=== PATIENT | female | born 1980 | race Caucasian/White ===

== ENCOUNTER 2023-01-10 14:18 | Emergency (ER) | payer MEDICARE, SELFPAY ==
[2023-01-10] VITALS (46 sets, daily range): BP systolic 104–153; BP diastolic 49–75; PULSE 88–133; RESP 16–37; TEMP 37.2–37.3; O2SAT 91–100
--- NOTE | ~2023-01-10 | CT_ITS ---
EXAMINATION: CT pelvis w con DATE: 01/10/2023 15:53 INDICATION: Large abscess of the vagina and proximal TECHNIQUE: High resolution computed tomography (CT) of the pelvis was performed with 100 mL Omnipaque -350 intravenous contrast. Additional sagittal and coronal reconstructions were performed. Automated exposure control and iterative reconstruction technique were employed. The dose-length product was 49 3.87 mGy-cm. COMPARISON: None FINDINGS: There are few diverticula along the sigmoid and distal descending colon without adjacent from trace s tranding to suggest diverticulitis. The appendix and visualized portion of the small bowels are unrem arkable. The visualized lower poles of the kidneys are normal. A millimeter hypoenhancing fibroid at the right posterior uterine fundus. Bladder is normal. No intraperitoneal abscess or free fluid. Ther e is soft tissue swelling with prominent subcutaneous edema the medial side of the left buttock exten ding across the left side of the perineum anterior to the left side of the mons pubis. This surrounds a 4.5 x 2.0 x 1.4 cm lenticular region of relative hypoenhancement at the left side of the introitus which is without a clearly defined peripheral enhancing wall to suggest an organized abscess but non etheless concerning for phlegmonous change progressing towards abscess. No evident soft tissue gas. A symmetric mildly enlarged likely reactive left inguinal lymphadenopathy. Moderate to severe lower lum bar facet osteoarthritis. Additional mild osteoarthritis at the bilateral hip and sacroiliac joints. IMPRESSION: 1. Soft tissue swelling and prominent subcutaneous edema at the left buttock and left side of the per ineum and mons pubis consistent with cellulitis. This surrounds a 4.5 x 2.0 x 1.4 cm lenticular regio n in the subcutaneous tissues at the left side of the introitus suggestive of phlegmonous change pote ntially progressing towards abscess but still without a clearly defined organized peripherally enhanc ing wall. Reviewed, dictated and finalized at location A. IMPRESSION: 1. Soft tissue swelling and prominent subcutaneous edema at the left buttock an d left side of the perineum and mons pubis consistent with cellulitis. This adam rounds a 4.5 x 2.0 x 1.4 cm lenticular region in the subcutaneous tissues at th e left side of the introitus suggestive of phlegmonous change potentially progr essing towards abscess but still without a clearly defined organized peripheral ly enhancing wall.
--- NOTE | 2023-01-10 14:28 | ED.NAVMDI ---
HPI - Nausea/Vomiting/Diarrhea General Chief complaint: Nausea/Vomiting/Diarrhea Stated complaint: nausea Time Seen by Provider: 01/10/23 14:20 Source: patient and RN notes reviewed Mode of arrival: ambulatory Limitations: no limitations History of Present Illness MD elicited complaint: nausea and vomiting Onset (ago): week(s) (2) Description of vomiting: food contents and bilious Associated nausea: Yes Associated abdominal pain: No Exacerbating factors: eating Relieving factors: none Associated symptoms: shortness of breath, weakness and other ( abscess left buttock) Related Data Home Medications Medication Instructions Recorded Confirmed No Home Medications 01/10/23 01/10/23 Allergies Allergy/AdvReac Type Severity Reaction Status Date / Time No Known Allergies Allergy Verified 01/10/23 14:49 Review of Systems Review of Systems: All systems reviewed & are unremarkable except as noted in HPI and below PMFSH Past Medical History Medical History (Updated 01/11/23 @ 00:01 by Major Wallace) No active medical problems Surgical History Surgical History (Updated 01/10/23 @ 14:[address] MD) No pertinent past surgical history Social History Social History (Updated 01/10/23 @ 14:[address] MD) Smoking status: Never smoker Exam Const: General: no acute distress, alert and ill appearing acutely Nutritional Appearance: well nourished Orientation/consciousness: patient oriented x3 Limitations: no limitations Other: female tech in room during examination. HENMT: Head: normal to inspection Ears: external ears normal Face/Nose/Sinus: Normal external nose present Face and sinus: normal facial exam Mouth: Yes dry mucous membranes Eyes: Conjunctivae: conjunctivae normal Cornea: corneas normal Pupils: Equal, round and reactive pupils present EOM: EOMs intact bilaterally Neck: Neck: normal visual inspection Resp: Effort & Inspection: normal respiratory effort Auscultation: clear to auscultation bilaterally Cardio: Rate: regular rate Rhythm: abnormal rhythm with ectopic beats GI: GI Palp: Yes Soft to palpation and No Tenderness to palpation present (GI) Auscultation: normal bowel sounds Back/Spine/Pelvis: Cervical Spine: cervical ROM normal Thoracic/Lumbar Spine: thoraco-lumbar ROM normal Skin: General skin exam: normal color, erythema ( left buttock extends around to the inner thigh and left labia), fluctuance and induration ( left buttock) Neuro: General: patient oriented x3, moves all extremities, no focal motor deficits and CN's II-XI intact bilaterally Speech: normal speech Gait exam (Neuro): Normal gait present Extrem: General: normal to inspection and no clubbing, cyanosis or edema Psych: Mental Status: mental status grossly normal Affect: normal affect Attitude: cooperative Course Course Emergency Course: [facility] declined due to general surgery not being able to deal with the perirectal abscess. Vital Signs Vital signs: Vital Signs Temperature 37.2 C 01/10/23 14:22 Pulse Rate 88 01/10/23 14:22 Respiratory Rate 20 01/10/23 14:22 Blood Pressure 147/75 H 01/10/23 14:22 Pulse Oximetry 98 01/10/23 14:22 Oxygen Delivery Room Air 01/10/23 14:22 Temperature 37.3 C 01/10/23 21:25 Pulse Rate 125 H 01/10/23 21:25 Respiratory Rate 22 H 01/10/23 21:25 Blood Pressure 125/55 L 01/10/23 21:25 Pulse Oximetry 98 01/10/23 21:25 Oxygen Delivery Room Air 01/10/23 21:25 Transfer Transfered to: [facility] ([facility] Transportation: BLS Transfer rationale: ICU bed Accepting physician: Dr. Bautista (ICU) MDM - Nausea/Vomiting/Diarrhea Differential Diagnosis Differential diagnosis: Likely gastroenteritis, dehydration and other ( DKA, soft tissue abscess, Liang's) Lab Data Attestation: I reviewed the patient's lab results. 01/10/23 14:51 01/10/23 18:08 Labs: Lab Results 0
[2023-01-10 14:41] LABS: Glucose Point of Care 429 mg/dl (65-105)
[2023-01-10 14:58] LABS: Hematocrit 43.4 % (35.0-49.0); Hemoglobin 14.1 g/dL (12.0-15.0); Mean Corpuscular HGB Conc 32.5 g/dL (32.0-36.0); Mean Corpuscular Hemoglobin 30.1 pg (27.0-31.0); Mean Corpuscular Volume 92.7 fL (78.0-102.0); Mean Platelet Volume 11.3 fl (9.2-11.8); Platelet Count Result 234 K/mm3 (150-420); Red Blood Count 4.68 M/mm3 (4.20-5.40); Red Cell Distribution Width 12.4 % (11.6-14.4); White Blood Count 15.6 K/mm3 (4.8-10.8)
[2023-01-10] MEDS: LACTATED RINGERS 1,000 ML 999 ML IV CONT ×2 (14:59→18:52)
[2023-01-10 15:16] LABS: Lactic Acid Reflex 2.5 mmol/L (0.4-2.0)
[2023-01-10 15:20] LABS: CRP > 25.0 mg/dL (0.0-0.9)
[2023-01-10 15:22] LABS: Alanine Aminotransferase 17 U/L (14-59); Albumin Level 2.5 g/dL (3.4-5.0); Alkaline Phosphatase 82 U/L (46-116); Anion Gap 28 mmol/L (8-16); Aspartate Amino Transferase 14 U/L (15-37); Bilirubin,Total 0.6 mg/dL (0.00-1.00); Blood Urea Nitrogen 24 mg/dL (7-18); Calcium 8.6 mg/dL (8.5-10.1); Carbon Dioxide 8 mmol/L (21-32); Chloride 96 mmol/L (98-108); Estimated CRCL calculation 57 ml/min; Estimated Glomerular Filt Rate 49; Osmolality Calculated 299 mOsm/kg (285-295); Potassium 3.8 mmol/L (3.5-5.1); Sodium 132 mmol/L (136-145); Total Protein 7.8 g/dL (6.4-8.2)
[2023-01-10 15:24] LABS: Glucose 468 mg/dL (70-99)
[2023-01-10 15:28] LABS: Appearance Urine Clear (Clear); Bilirubin Urine 1+ (Negative); Blood Urine 2+ (Negative); Color Urine Light Yellow (Yellow); Glucose Urine UA 2+ (Negative); Ketones Urine 3+ (Negative); Leukocyte Esterase Ur Negative LEU/UL (Negative); Nitrate Urine Negative (Negative); Protein Urine 1+ (Negative); Specific Grav Ur >= 1.030 (1.010-1.020); Urobilinogen Urine 0.2 mg/dL (0.2-1.0); pH Urine 5.5 (5.0-8.0)
[2023-01-10 15:31] LABS: Add Urine Microscopic? YES; Pregnancy On Board Control Positive; Squamous Epithelial Cell Urine Rare /hpf (Few); Urine Pregnancy Test Negative; WBC Urine None seen /hpf (0-3)
[2023-01-10 15:32] LABS: Amorphous Sediment Urine Present; Bacteria Urine Trace /hpf
[2023-01-10 15:42] LABS: Band Neutrophils Percent 22 % (0-6); Basophils Percent Manual 0 % (0-1); Eosinophils Percent Manual 0 % (1-6); Lymphocytes Absolute Manual 0.93 K/mm3 (1.1-4.5); Lymphocytes Percent Manual 6 % (18-44); Metamyelocytes Percent 1 %; Monocytes Absolute Manual 1.09 K/mm3 (0.1-0.90); Monocytes Percent Manual 7 % (3-9); Neutrophils Absolute Manual 13.41 K/mm3 (1.7-7.2); Neutrophils Percent Manual 64 % (46-73); Total Cells Counted 100
[2023-01-10 15:43] LABS: Platelet Estimate Adequate (Adequate)
[2023-01-10 16:01] LABS: Base Excess ABG -17.6 mmol/L (0-2); HCO3 ABG 6.6 mmol/L (23-29); Oxygen Content ABG 19.1 %vol (16.0-22.0); Oxygen Saturation ABG 97.9 % (95-97); Oxyhemoglobin 97.1 % (94-100); PO2 ABG 121.7 mmHg (80-90); Total Hemoglobin 13.9 g/dL (12.0-18.0); pH ABG 7.27 (7.35-7.45)
[2023-01-10] MEDS: INSULIN REG 100 UNITS/100 ML 100 UNITS/100 ML BAG 8 UNITS IV CONT (16:02)
[2023-01-10 16:03] LABS: Device ROOM AIR; Modified Allen's Test Pass; PCO2 ABG 14.9 mmHg (35-45); Site Drawn RIGHT RADIAL
[2023-01-10] MEDS: INSULIN REG 100 UNITS/100 ML 100 UNITS/100 ML BAG IV CONT ×2 (16:07→18:52)
--- NOTE | 2023-01-10 16:16 | PC.NURSE ---
PT HAS RETURNED FROM CT, USED RR, AND HAS HAD ABG'S COLLECTED. FAMILY AT BEDSIDE. NO CHANGE IN PT RESP STATUS. PHARMACY ADJUSTED INSULIN RATE TO 8 UNITS PER HOUR. INSULIN IS INFUSING ORDERED WITHOUT DIFFICULTY, IVF AND IV MEDICATIONS ARE INFUSING WITHOUT DIFFICULTY. PT REPORTS HER BUTTOCKS HURTS, ERP IS AWARE. PT IS AWAITING LAB RESULTS AT THIS TIME. WILL CONTINUE TO MONITOR.
[2023-01-10 17:17] LABS: Glucose Point of Care 421 mg/dl (65-105)
[2023-01-10] MEDS: KETOROLAC 30 MG/ML VIAL (*BKC) IV PUSH (17:24)
[2023-01-10 17:55] LABS: Reflex Lactic Acid Yes or No Add Lactic
[2023-01-10 18:16] LABS: Glucose Point of Care 312 mg/dl (65-105)
[2023-01-10 18:30] LABS: Lactic Acid 1.8 mmol/L (0.4-2.0)
[2023-01-10 18:47] LABS: Anion Gap 24 mmol/L (8-16); Blood Urea Nitrogen 22 mg/dL (7-18); Calcium 8.3 mg/dL (8.5-10.1); Carbon Dioxide 8 mmol/L (21-32); Chloride 98 mmol/L (98-108); Estimated CRCL calculation 69 ml/min; Estimated Glomerular Filt Rate > 60; Glucose 327 mg/dL (70-99); Osmolality Calculated 286 mOsm/kg (285-295); Potassium 3.5 mmol/L (3.5-5.1); Sodium 130 mmol/L (136-145)
--- NOTE | 2023-01-10 19:14 | PC.NURSE ---
PT IS AWAITING ROOM ASSIGNMENT AT [facility] SHE HAS BEEN ACCEPTED BY DR ORTEGA IN THE ICU. PT AND FAMILY ARE AWARE OF PLAN OF CARE. REPORT TO DONITA MANUEL AT THIS TIME. NO CHANGE IN PT STATUS.
[2023-01-10 19:15] LABS: Glucose Point of Care 267 mg/dl (65-105)
--- NOTE | 2023-01-10 19:16 | PC.NURSE ---
DIABETES EDUCATION WILL BE COMPLETED AT [facility] EDUCATION WAS NOT NOTIFIED.
[2023-01-10] MEDS: SODIUM BICARBONATE 8.4% 50 MEQ/50 ML SYRINGE 85 MEQ IV PUSH (19:29)
[2023-01-10] MEDS: VANCOMYCIN 1,000 MG/NS 250 ML 1,000 MG/250 ML BAG 250 MG IVPB (19:30)
[2023-01-10] MEDS: ONDANSETRON INJ 4 MG/2 ML VIAL IV PUSH (19:52)
--- NOTE | 2023-01-10 20:32 | PC.NURSE ---
Pt accucheck 238. Per protocol, will keep insulin drip at 4U/hr.
[2023-01-10] MEDS: PHARMACIST COMMUNICATION ORDER 1 EACH XX (20:41)
[2023-01-10] MEDS: CLINDAMYCIN 600 MG/D5W 50 ML 600 MG/50 ML PIGGYBACK 100 MG IVPB (20:46)
--- NOTE | 2023-01-10 21:12 | PC.NURSE ---
Pt accucheck 234. Dr. Lane giving written orders to EMS for insulin drip to remain at 4 units/hr for transport
--- NOTE | 2023-01-14 15:04 | PC.NURSE ---
FINAL BLOOD CULTURE RESULT: ISOLATE 1: STREPTOCOCCUS ANGINOSUS IN ANAEROBIC AND AEROBIC BOTTLES. PT WAS TRANSFERRED TO [facility]. SPOKE WITH DONITA WORKMAN, RESULTS AND SENSITIVITIES WERE FAXED TO [phone]
[2023-01-23 12:38] LABS: Glucose Point of Care 234 mg/dl (65-105)
[2023-01-23 12:38] LABS: Glucose Point of Care 238 mg/dl (65-105)
== END 2023-01-10 21:26 | disposition short-term general hospital (02) ==
PROVIDERS: Emergency Provider Emergency Medicine
DX: E11.10 Type 2 diabetes mellitus with ketoacidosis without coma (principal); L03.317 Cellulitis of buttock; R53.1 Weakness
CPT/HCPCS: 36415; 36600; 72193; 80048; 80053; 81001; 81025; 82805; 82948; 83605; 85025; 86140; 87040; 87147; 87186; 96361; 96365; 96367; 96375; 96376; 99285; J0696; J1815; J1885; J2405; J3370; J7120; Q9967

== ENCOUNTER 2023-02-18 10:35 | Outpatient (CLI) | payer MEDICARE, SELFPAY ==
[2023-02-18 10:50] LABS: Hematocrit 28.2 % (35.0-49.0); Hemoglobin 8.8 g/dL (12.0-15.0); Mean Corpuscular HGB Conc 31.2 g/dL (32.0-36.0); Mean Corpuscular Hemoglobin 29.4 pg (27.0-31.0); Mean Corpuscular Volume 94.3 fL (78.0-102.0); Mean Platelet Volume 8.7 fl (9.2-11.8); Platelet Count Result 450 K/mm3 (150-420); Red Blood Count 2.99 M/mm3 (4.20-5.40); Red Cell Distribution Width 14.1 % (11.6-14.4); White Blood Count 6.8 K/mm3 (4.8-10.8)
[2023-02-18 11:05] LABS: Hemoglobin A1C 7.6 % (<5.7)
[2023-02-18 11:17] LABS: Band Neutrophils Percent 0 % (0-6); Basophils Percent Manual 0 % (0-1); Eosinophils Absolute Manual 0.54 K/mm3 (0.02-0.5); Eosinophils Percent Manual 8 % (1-6); Lymphocytes Absolute Manual 1.15 K/mm3 (1.1-4.5); Lymphocytes Percent Manual 17 % (18-44); Monocytes Absolute Manual 0.34 K/mm3 (0.1-0.90); Monocytes Percent Manual 5 % (3-9); Neutrophils Absolute Manual 4.76 K/mm3 (1.7-7.2); Neutrophils Percent Manual 70 % (46-73); Platelet Estimate Increased (Adequate); Total Cells Counted 100
[2023-02-18 11:40] LABS: Creatinine Urine 30.31 mg/dL (40-278)
[2023-02-18 11:43] LABS: Alanine Aminotransferase 27 U/L (14-59); Albumin Level 2.4 g/dL (3.4-5.0); Alkaline Phosphatase 72 U/L (46-116); Anion Gap 11 mmol/L (8-16); Aspartate Amino Transferase 23 U/L (15-37); Bilirubin,Total 0.2 mg/dL (0.00-1.00); Blood Urea Nitrogen 22 mg/dL (7-18); Calcium 9.1 mg/dL (8.5-10.1); Carbon Dioxide 23 mmol/L (21-32); Chloride 105 mmol/L (98-108); Cholesterol 191 mg/dL (0-200); Estimated Glomerular Filt Rate 22; Glucose 128 mg/dL (70-99); HDL Direct 25 mg/dL (40-60); LDL Cholesterol Calculated 111 mg/dL (<130); Osmolality Calculated 293 mOsm/kg (285-295); Potassium 5.5 mmol/L (3.5-5.1); Sodium 139 mmol/L (136-145); Triglycerides 276 mg/dL (0-150)
[2023-02-18 12:26] LABS: Ferritin 422 ng/mL (8-252); Iron 37 ug/dL (50-170); Percent Iron Saturation 23 % (12-57)
== END 2023-02-18 10:36 | disposition home or self-care (01) ==
LOC: CHSLAB 10:38
PROVIDERS: PCP Family Medicine; Visit Provider Family Medicine
DX: D50.9 Iron deficiency anemia, unspecified (principal); D64.9 Anemia, unspecified; N18.9 Chronic kidney disease, unspecified; I10 Essential (primary) hypertension; E11.9 Type 2 diabetes mellitus without complications; K61.1 Rectal abscess
CPT/HCPCS: 36415; 80053; 80061; 82043; 82728; 83036; 83540; 83550; 85025

== ENCOUNTER 2023-03-03 12:35 | Outpatient (CLI) | payer MEDICARE, SELFPAY ==
[2023-03-03 13:28] LABS: Albumin Level 2.9 g/dL (3.4-5.0); Anion Gap 9 mmol/L (8-16); Blood Urea Nitrogen 14 mg/dL (7-18); Calcium 9.2 mg/dL (8.5-10.1); Carbon Dioxide 27 mmol/L (21-32); Chloride 102 mmol/L (98-108); Estimated Glomerular Filt Rate 26; Glucose 148 mg/dL (70-99); Osmolality Calculated 289 mOsm/kg (285-295); Phosphorus 4.4 mg/dL (2.6-4.7); Sodium 138 mmol/L (136-145)
== END 2023-03-03 12:36 | disposition home or self-care (01) ==
LOC: CHSLAB 12:40
PROVIDERS: PCP Family Medicine
DX: E11.65 Type 2 diabetes mellitus with hyperglycemia (principal); Z68.31 Body mass index [BMI] 31.0-31.9, adult
CPT/HCPCS: 36415; 80069

== ENCOUNTER 2023-03-04 12:19 | Outpatient (CLI) | payer MEDICARE, SELFPAY ==
[2023-03-04 12:26] VITALS: BMI 27.6
[2023-03-04] MEDS: SODIUM CHLORIDE 0.9% IV 1,000 ML 500 ML IVPB (12:30)
[2023-03-04 12:39] LABS: Basophils Absolute Auto 0.09 K/mm3 (0.00-0.10); Basophils Percent Auto 1.5 % (0.0-1.0); Eosinophils Absolute Auto 0.17 K/mm3 (0.02-0.50); Eosinophils Percent Auto 2.9 % (1.0-6.0); Hematocrit 31.4 % (35.0-49.0); Hemoglobin 9.7 g/dL (12.0-15.0); Immature Granulocyte Absolute 0.02 K/mm3 (0.00-0.00); Immature Granulocyte Percent A 0.3 % (0.0-0.0); Lymphocytes Absolute Auto 1.14 K/mm3 (1.10-4.50); Lymphocytes Percent Auto 19.2 % (18.0-42.0); Mean Corpuscular HGB Conc 30.9 g/dL (32.0-36.0); Mean Corpuscular Hemoglobin 28.7 pg (27.0-31.0); Mean Corpuscular Volume 92.9 fL (78.0-102.0); Mean Platelet Volume 9.4 fl (9.2-11.8); Monocytes Absolute Auto 0.48 K/mm3 (0.10-0.90); Monocytes Percent Auto 8.1 % (2.0-11.0); Platelet Count Result 403 K/mm3 (150-420); Red Blood Count 3.38 M/mm3 (4.20-5.40); Red Cell Distribution Width 14.2 % (11.6-14.4); White Blood Count 5.9 K/mm3 (4.8-10.8)
[2023-03-04 12:45] VITALS: BP 120/54; PULSE 92; RESP 18; TEMP 36.8; O2SAT 98
[2023-03-04 12:58] LABS: Alanine Aminotransferase 14 U/L (14-59); Alkaline Phosphatase 56 U/L (46-116); Anion Gap 8 mmol/L (8-16); Aspartate Amino Transferase 17 U/L (15-37); Bilirubin,Total 0.4 mg/dL (0.00-1.00); Blood Urea Nitrogen 14 mg/dL (7-18); Carbon Dioxide 29 mmol/L (21-32); Chloride 103 mmol/L (98-108); Estimated CRCL calculation 33 ml/min; Estimated Glomerular Filt Rate 25; Glucose 149 mg/dL (70-99); Magnesium 1.7 mg/dL (1.8-2.4); Osmolality Calculated 293 mOsm/kg (285-295); Potassium 4.1 mmol/L (3.5-5.1); Sodium 140 mmol/L (136-145); Total Protein 8.3 g/dL (6.4-8.2); Troponin I < 4.0 ng/L (0.00-60.4)
--- NOTE | 2023-03-04 14:34 | PC.NURSE ---
Patient here for 1 liter of Normal Saline to be infused in 2 hours. Education given. No concerns voiced. IV NS administered. SEE MAR. Tolerated well. Safe exit of hospital per wc with sister.
== END 2023-03-04 12:20 | disposition home or self-care (01) ==
PROVIDERS: PCP Family Medicine; Visit Provider Nurse Practitioner Family
DX: R11.2 Nausea with vomiting, unspecified (principal)
CPT/HCPCS: 36415; 80053; 83735; 84484; 85025; 96360; 96361; J7030

== ENCOUNTER 2023-03-11 13:14 | Outpatient (CLI) | payer MEDICARE, SELFPAY ==
--- NOTE | 2023-03-11 13:29 | ECG_ITS ---
Measurements Intervals [place] Rate: 89 P: 44 WA: 159 QRS: 47 QRSD: 86 T: 21 QT: 358 QTc: 437 Interpretive Statements SINUS RHYTHM WITH FREQUENT VENTRICULAR PREMATURE COMPLEXES NONSPECIFIC T-WAVE ABNORMALITY ABNORMAL RHYTHM ECG NO PREVIOUS ECG AVAILABLE FOR COMPARISON Electronically Signed On 03-12-2023 14:00:10 CDT by Svetlana Dudley M.D.
[2023-03-11 13:30] LABS: Basophils Absolute Auto 0.09 K/mm3 (0.00-0.10); Basophils Percent Auto 1.3 % (0.0-1.0); Eosinophils Absolute Auto 0.09 K/mm3 (0.02-0.50); Eosinophils Percent Auto 1.3 % (1.0-6.0); Hematocrit 31.4 % (35.0-49.0); Hemoglobin 9.9 g/dL (12.0-15.0); Immature Granulocyte Absolute 0.02 K/mm3 (0.00-0.00); Immature Granulocyte Percent A 0.3 % (0.0-0.0); Lymphocytes Absolute Auto 1.58 K/mm3 (1.10-4.50); Lymphocytes Percent Auto 22.8 % (18.0-42.0); Mean Corpuscular HGB Conc 31.5 g/dL (32.0-36.0); Mean Corpuscular Hemoglobin 28.9 pg (27.0-31.0); Mean Corpuscular Volume 91.5 fL (78.0-102.0); Mean Platelet Volume 9.9 fl (9.2-11.8); Monocytes Absolute Auto 0.64 K/mm3 (0.10-0.90); Monocytes Percent Auto 9.2 % (2.0-11.0); Neutrophils Absolute Auto 4.5 K/mm3 (1.7-7.2); Neutrophils Percent Auto 65.1 % (50.0-70.0); Platelet Count Result 390 K/mm3 (150-420); Red Blood Count 3.43 M/mm3 (4.20-5.40); Red Cell Distribution Width 14.4 % (11.6-14.4); White Blood Count 6.9 K/mm3 (4.8-10.8)
[2023-03-11 14:08] LABS: Alanine Aminotransferase 20 U/L (14-59); Albumin Level 3.2 g/dL (3.4-5.0); Alkaline Phosphatase 57 U/L (46-116); Anion Gap 9 mmol/L (8-16); Aspartate Amino Transferase 18 U/L (15-37); Bilirubin,Total 0.5 mg/dL (0.00-1.00); Blood Urea Nitrogen 18 mg/dL (7-18); Calcium 9.5 mg/dL (8.5-10.1); Carbon Dioxide 30 mmol/L (21-32); Chloride 98 mmol/L (98-108); Estimated Glomerular Filt Rate 24; Glucose 105 mg/dL (70-99); Magnesium 1.8 mg/dL (1.8-2.4); Osmolality Calculated 285 mOsm/kg (285-295); Sodium 137 mmol/L (136-145); Total Protein 8.1 g/dL (6.4-8.2)
== END 2023-03-11 13:15 | disposition home or self-care (01) ==
LOC: CHSLAB 13:16
PROVIDERS: PCP Nurse Practitioner Family; Visit Provider Nurse Practitioner Family
DX: R11.2 Nausea with vomiting, unspecified (principal); R94.31 Abnormal electrocardiogram [ECG] [EKG]; I49.8 Other specified cardiac arrhythmias
CPT/HCPCS: 36415; 80053; 83735; 85025; 93005

== ENCOUNTER 2023-03-13 12:53 | Emergency (ER) | payer MEDICARE, SELFPAY ==
--- NOTE | ~2023-03-13 | XR_ITS ---
EXAMINATION: XR chest 2V DATE: 03/13/2023 13:31 INDICATION: Tachycardia TECHNIQUE: Frontal and lateral views of the chest are obtained COMPARISON: None available FINDINGS: The lungs are free of acute opacities. No pleural effusion or pneumothorax. The cardiomedia stinal silhouette is normal. There is mild thoracic spondylosis. IMPRESSION: 1. No acute cardiopulmonary abnormality. Reviewed, dictated and finalized at location A.
--- NOTE | 2023-03-13 12:57 | ECG_ITS ---
Measurements Intervals [place] Rate: 78 P: 45 IA: 151 QRS: 51 QRSD: 82 T: 35 QT: 333 QTc: 380 Interpretive Statements SINUS RHYTHM WITH FREQUENT VENTRICULAR PREMATURE COMPLEXES NONSPECIFIC T-WAVE ABNORMALITY ABNORMAL RHYTHM ECG COMPARED TO ECG 03/11/2023 13:40:06 NO SIGNIFICANT CHANGES Electronically Signed On 03-13-2023 15:46:36 CDT by Svetlana Dudley M.D.
[2023-03-13 13:12] VITALS: PULSE 92
[2023-03-13 13:20] LABS: Hematocrit 30.6 % (35.0-49.0); Hemoglobin 9.7 g/dL (12.0-15.0); Mean Corpuscular HGB Conc 31.7 g/dL (32.0-36.0); Mean Corpuscular Hemoglobin 29.1 pg (27.0-31.0); Mean Corpuscular Volume 91.9 fL (78.0-102.0); Mean Platelet Volume 9.7 fl (9.2-11.8); Platelet Count Result 352 K/mm3 (150-420); Red Blood Count 3.33 M/mm3 (4.20-5.40); Red Cell Distribution Width 14.1 % (11.6-14.4); White Blood Count 6.6 K/mm3 (4.8-10.8)
[2023-03-13 13:34] LABS: INR 1.1; Partial Thromboplastin Time 26.1 SEC (23.90-30.70); Prothrombin Time 11.6 Seconds (9.50-12.10)
--- NOTE | 2023-03-13 13:43 | ED.GENADULT ---
HPI - General Adult General Chief complaint: Arrhythmia/Palpitations Stated complaint: abnormal heart rhythm Time Seen by Provider: 03/13/23 12:57 History of Present Illness HPI narrative: Patient was sent by nurse practitioner SANDY from primary care clinic after a follow-up from March 04 when she had nausea and vomiting secondary to Tulicity. patient had an EKG done today nurse practitioner had called and said that patient was in atrial fib with rapid ventricular response at a rate of 107. So she was sending the patient to the emergency department for evaluation further treatment. She said the patient had irregular heartbeat. Patient denies any symptoms such as chest pain shortness of breath any pain anywhere problems eating drinking voiding or stooling fever cough runny nose sore throat problems walking talking seeing or hearing bleeding or bruising swelling lumps or bumps rash or itching dizziness or lightheadedness. Denies any trauma her blood sugars been good her perirectal abscess has been healing well she currently has a Greenberg in to keep everything clean. She avoids caffeine not had any other medication changes. Denies any other medical problems. Past medical history chronic kidney disease perirectal abscess hypertension. She said she had some low electrolytes couple weeks ago. Denies any history of heart lung liver disease anemia thyroid disease. Related Data Home Medications Medication Instructions Recorded Confirmed amlodipine 10 mg tablet 10 mg PO DAILY 02/18/23 03/13/23 carvedilol 6.25 mg tablet 6.25 mg PO Q12H 02/18/23 03/13/23 cholecalciferol (vitamin D3) 125 125 mcg PO WEEKLY 02/18/23 03/13/23 mcg (5,000 unit) tablet ferrous sulfate 325 mg (65 mg 325 mg PO BID 02/18/23 03/13/23 iron) tablet insulin detemir U-100 100 unit/mL 20 unit subcut DAILY 02/18/23 03/13/23 subcutaneous solution (Levemir U-100 Insulin) insulin lispro 100 unit/mL 6 unit subcut TID 02/18/23 03/13/23 subcutaneous solution (Humalog U-100 Insulin) hydralazine 50 mg tablet 50 mg PO Q8H 03/13/23 03/13/23 Allergies Allergy/AdvReac Type Severity Reaction Status Date / Time No Known Allergies Allergy Verified 03/13/23 11:52 Review of Systems Review of Systems: All systems reviewed & are unremarkable except as noted in HPI and below PMFSH Past Medical History Medical History CKD (chronic kidney disease) Hypertension Perirectal abscess Type II diabetes mellitus Surgical History Surgical History No pertinent past surgical history Family History Family History Other Diabetes mellitus Hypertension Lung cancer Social History Social History Smoking status: Never smoker Alcohol intake: never Lack of Transportation: No Lack of Food: Never True Current Housing: I Have Housing Concerned About Future Housing: No Difficulty Paying Gas/Electric Bills: No Difficulty Paying for Meds: No Currently Unemployed: No Education: High School Diploma/GED Difficulty w/ Childcare or Family Care: No Living arrangements: with family Occupation/Education: unemployed Exam Narrative: ? White Female patient no apparent distress.? Head normocephalic, atraumatic.? Eyes conjunctiva pink sclera nonicteric.? Extraocular movements are intact.? Ears externally normal.? Oropharynx is clear with moist mucous membranes without exudates.? Neck is supple nontender no lymphadenopathy.? Back is nontender.? Lungs are clear.? Heart is regular rate occasional extra beat without murmurs gallops or rubs.? Chest wall is nontender.? Abdomen is soft and nontender no hepatosplenomegaly or masses no CVA tenderness no abdominal bruits.? She has a Greenberg catheter in place with clear urine draining. Extremities no cyanos
[2023-03-13 13:46] VITALS: BP 139/79; PULSE 92; RESP 20; TEMP 36.9; O2SAT 97
[2023-03-13 13:47] LABS: Lactic Acid Reflex 1.1 mmol/L (0.4-2.0)
[2023-03-13 13:58] LABS: Alanine Aminotransferase 18 U/L (14-59); Alkaline Phosphatase 56 U/L (46-116); Anion Gap 9 mmol/L (8-16); Aspartate Amino Transferase 17 U/L (15-37); Bilirubin,Total 0.4 mg/dL (0.00-1.00); Blood Urea Nitrogen 16 mg/dL (7-18); Calcium 9.7 mg/dL (8.5-10.1); Carbon Dioxide 28 mmol/L (21-32); Chloride 100 mmol/L (98-108); Estimated CRCL calculation 34 ml/min; Estimated Glomerular Filt Rate 26; Glucose 134 mg/dL (70-99); Magnesium 1.8 mg/dL (1.8-2.4); Osmolality Calculated 287 mOsm/kg (285-295); Sodium 137 mmol/L (136-145); Total Protein 8.2 g/dL (6.4-8.2)
[2023-03-13 13:59] LABS: Thyroid Stimulating Hormone 3.16 uIU/mL (0.36-3.74); Troponin I < 4.0 ng/L (0.00-60.4)
== END 2023-03-13 14:35 | disposition home or self-care (01) ==
PROVIDERS: Emergency Provider Emergency Medicine; PCP Family Medicine
DX: R94.31 Abnormal electrocardiogram [ECG] [EKG] (principal); I12.9 Hypertensive chronic kidney disease with stage 1 through stage 4 chronic kidney disease, or unspecified chronic kidney disease; E11.22 Type 2 diabetes mellitus with diabetic chronic kidney disease; N18.9 Chronic kidney disease, unspecified; Z79.4 Long term (current) use of insulin; Z79.899 Other long term (current) drug therapy
CPT/HCPCS: 36415; 71046; 80053; 83605; 83735; 84443; 84484; 85027; 85610; 85730; 93005; 99284

== ENCOUNTER 2023-06-02 15:30 | Outpatient (CLI) | payer MEDICARE, SELFPAY ==
[2023-06-02 15:54] LABS: Basophils Absolute Auto 0.06 K/mm3 (0.00-0.10); Basophils Percent Auto 0.9 % (0.0-1.0); Eosinophils Absolute Auto 0.04 K/mm3 (0.02-0.50); Eosinophils Percent Auto 0.6 % (1.0-6.0); Hematocrit 41.3 % (35.0-49.0); Hemoglobin 13.9 g/dL (12.0-15.0); Immature Granulocyte Absolute 0.03 K/mm3 (0.00-0.00); Immature Granulocyte Percent A 0.5 % (0.0-0.0); Lymphocytes Absolute Auto 1.69 K/mm3 (1.10-4.50); Mean Corpuscular HGB Conc 33.7 g/dL (32.0-36.0); Mean Corpuscular Hemoglobin 29.7 pg (27.0-31.0); Mean Corpuscular Volume 88.2 fL (78.0-102.0); Mean Platelet Volume 10.3 fl (9.2-11.8); Monocytes Absolute Auto 0.46 K/mm3 (0.10-0.90); Monocytes Percent Auto 7.1 % (2.0-11.0); Neutrophils Absolute Auto 4.2 K/mm3 (1.7-7.2); Neutrophils Percent Auto 64.9 % (50.0-70.0); Platelet Count Result 292 K/mm3 (150-420); Red Blood Count 4.68 M/mm3 (4.20-5.40); Red Cell Distribution Width 12.7 % (11.6-14.4); White Blood Count 6.5 K/mm3 (4.8-10.8)
[2023-06-02 16:04] LABS: Creatinine Urine 63.16 mg/dL (40-278); MALB Creatinine Ratio 20.5 mg/g (0-30); Microalbumin Urine Random < 13.0 mg/L
[2023-06-02 16:06] LABS: Hemoglobin A1C 7.9 % (<5.7)
[2023-06-02 16:30] LABS: Alanine Aminotransferase 31 U/L (14-59); Albumin Level 3.7 g/dL (3.4-5.0); Alkaline Phosphatase 65 U/L (46-116); Anion Gap 8 mmol/L (8-16); Aspartate Amino Transferase 15 U/L (15-37); Bilirubin,Total 0.5 mg/dL (0.00-1.00); Blood Urea Nitrogen 27 mg/dL (7-18); Calcium 9.4 mg/dL (8.5-10.1); Carbon Dioxide 28 mmol/L (21-32); Chloride 100 mmol/L (98-108); Cholesterol 227 mg/dL (0-200); Estimated Glomerular Filt Rate 40; Glucose 136 mg/dL (70-99); HDL Direct 40 mg/dL (40-60); LDL Cholesterol Calculated 154 mg/dL (<130); Osmolality Calculated 289 mOsm/kg (285-295); Potassium 4.6 mmol/L (3.5-5.1); Sodium 136 mmol/L (136-145); Total Protein 7.8 g/dL (6.4-8.2); Triglycerides 163 mg/dL (0-150)
== END 2023-06-02 15:31 | disposition home or self-care (01) ==
LOC: CHSLAB 15:32
PROVIDERS: PCP Nurse Practitioner Family; Visit Provider Nurse Practitioner Family
DX: E11.628 Type 2 diabetes mellitus with other skin complications (principal); I10 Essential (primary) hypertension; N18.9 Chronic kidney disease, unspecified
CPT/HCPCS: 36415; 80053; 80061; 82043; 83036; 85025

== ENCOUNTER 2023-08-20 11:35 | Outpatient (CLI) | payer MEDICARE, SELFPAY ==
[2023-08-20 12:25] LABS: Microalbumin Urine Random 15.3 mg/L
[2023-08-20 12:27] LABS: Hemoglobin A1C 6.9 % (<5.7)
[2023-08-20 12:46] LABS: Albumin Level 3.6 g/dL (3.4-5.0); Anion Gap 9 mmol/L (8-16); Blood Urea Nitrogen 25 mg/dL (7-18); Calcium 8.9 mg/dL (8.5-10.1); Carbon Dioxide 26 mmol/L (21-32); Chloride 102 mmol/L (98-108); Estimated Glomerular Filt Rate 43; Glucose 166 mg/dL (70-99); Osmolality Calculated 292 mOsm/kg (285-295); Phosphorus 3.8 mg/dL (2.6-4.7); Potassium 4.8 mmol/L (3.5-5.1); Sodium 137 mmol/L (136-145)
[2023-08-23 12:44] LABS: Vitamin D 25 Hydroxy 29 ng/mL (30-100)
[2023-08-23 21:39] LABS: Parathyroid Intact 51 pg/mL (14-64)
== END 2023-08-20 11:36 | disposition home or self-care (01) ==
LOC: CHSLAB 11:40
PROVIDERS: Internal Medicine; PCP Nurse Practitioner Family
DX: E11.65 Type 2 diabetes mellitus with hyperglycemia (principal); Z68.31 Body mass index [BMI] 31.0-31.9, adult
CPT/HCPCS: 36415; 80069; 82043; 82306; 83036; 83970

== ENCOUNTER 2023-11-12 07:03 | Outpatient (CLI) | payer MEDICARE, SELFPAY ==
--- NOTE | ~2023-11-12 | MM_ITS ---
EXAMINATION: MM screening shellie BI w yamilex HISTORY: Screening mammogram TECHNIQUE: Craniocaudal and mediolateral oblique 3-D tomosynthesis images were obtained and synthetic 2-D images were generated. CAD analysis was submitted and interpreted. COMPARISON: No prior mammogram is available for comparison at this institution. BREAST PARENCHYMAL COMPOSITION: The breasts are heterogeneously dense, which may obscure small masses . FINDINGS: There is no evidence of suspicious mass, calcification, or architectural distortion to sugg est malignancy in either breast. IMPRESSION: 1. No mammographic evidence of malignancy. 2. Recommend routine screening mammography in one year. BI-RADS Category 1: Negative Reviewed, dictated and finalized at location A.
== END 2023-11-12 07:04 | disposition home or self-care (01) ==
LOC: CHSIMG 07:04
PROVIDERS: PCP Family Medicine; Visit Provider Family Medicine
DX: Z12.31 Encounter for screening mammogram for malignant neoplasm of breast (principal)
CPT/HCPCS: 77063; 77067

== ENCOUNTER 2024-03-08 15:35 | Outpatient (CLI) | payer MEDICARE, SELFPAY ==
[2024-03-08 16:08] LABS: Hematocrit 43.4 % (35.0-49.0); Hemoglobin 14.6 g/dL (12.0-15.0); Mean Corpuscular HGB Conc 33.6 g/dL (32-36); Mean Corpuscular Hemoglobin 30.1 pg (27.0-31.0); Mean Corpuscular Volume 89.5 fL (78.0-102.0); Platelet Count Result 262 K/mm3 (150-420); Red Blood Count 4.85 M/mm3 (4.20-5.40); Red Cell Distribution Width 12.4 % (11.6-14.4); White Blood Count 8.2 K/mm3 (4.8-10.8)
[2024-03-08 16:30] LABS: Albumin Level 3.4 g/dL (3.4-5.0); Anion Gap 8 mmol/L (4-12); Blood Urea Nitrogen 23 mg/dL (7-18); Calcium 8.8 mg/dL (8.5-10.1); Carbon Dioxide 26 mmol/L (21-32); Chloride 100 mmol/L (98-108); Estimated Glomerular Filt Rate 48; Glucose 156 mg/dL (70-99); Osmolality Calculated 284 mOsm/kg (285-295); Phosphorus 3.7 mg/dL (2.6-4.7); Potassium 4.3 mmol/L (3.5-5.1); Sodium 134 mmol/L (136-145)
[2024-03-08 16:39] LABS: Creatinine Urine 51.42 mg/dL (40-278); MALB Creatinine Ratio 25.2 mg/g (0-30); Microalbumin Urine Random < 13.0 mg/L
== END 2024-03-08 15:36 | disposition home or self-care (01) ==
LOC: CHSLAB 15:39
PROVIDERS: PCP Family Medicine
DX: N18.32 Chronic kidney disease, stage 3b (principal)
CPT/HCPCS: 36415; 80069; 82043; 85027

== ENCOUNTER 2024-06-23 08:37 | Outpatient (CLI) | payer MEDICARE, MEDICAID, SELFPAY ==
[2024-06-23 09:06] LABS: Basophils Absolute Auto 0.06 K/mm3 (0.00-0.10); Basophils Percent Auto 0.9 % (0.0-1.0); Eosinophils Absolute Auto 0.03 K/mm3 (0.02-0.50); Eosinophils Percent Auto 0.5 % (1.0-6.0); Hematocrit 42.6 % (35.0-49.0); Hemoglobin 14.2 g/dL (12.0-15.0); Immature Granulocyte Absolute 0.04 K/mm3 (0.00-0.00); Immature Granulocyte Percent A 0.6 % (0.0-0.0); Lymphocytes Absolute Auto 1.33 K/mm3 (1.10-4.50); Lymphocytes Percent Auto 20.6 % (18.0-42.0); Mean Corpuscular HGB Conc 33.3 g/dL (32-36); Mean Corpuscular Hemoglobin 29.5 pg (27.0-31.0); Mean Corpuscular Volume 88.6 fL (78.0-102.0); Mean Platelet Volume 10.2 fl (9.2-11.8); Monocytes Absolute Auto 0.51 K/mm3 (0.10-0.90); Monocytes Percent Auto 7.9 % (2.0-11.0); Neutrophils Percent Auto 69.5 % (50.0-70.0); Platelet Count Result 290 K/mm3 (150-420); Red Blood Count 4.81 M/mm3 (4.20-5.40); Red Cell Distribution Width 12.6 % (11.6-14.4); White Blood Count 6.5 K/mm3 (4.8-10.8)
[2024-06-23 09:15] LABS: Hemoglobin A1C 7.5 % (<5.7)
[2024-06-23 10:14] LABS: Alanine Aminotransferase 24 U/L (14-59); Albumin Level 3.6 g/dL (3.4-5.0); Alkaline Phosphatase 55 U/L (46-116); Anion Gap 6 mmol/L (4-12); Aspartate Amino Transferase 16 U/L (15-37); Bilirubin,Total 0.3 mg/dL (0.00-1.00); Blood Urea Nitrogen 19 mg/dL (7-18); Calcium 9.4 mg/dL (8.5-10.1); Carbon Dioxide 27 mmol/L (21-32); Chloride 102 mmol/L (98-108); Cholesterol 216 mg/dL (0-200); Estimated Glomerular Filt Rate 50; Glucose 166 mg/dL (70-99); HDL Direct 43 mg/dL (40-60); LDL Cholesterol Calculated 150 mg/dL (<130); Osmolality Calculated 286 mOsm/kg (285-295); Potassium 4.8 mmol/L (3.5-5.1); Sodium 135 mmol/L (136-145); Total Protein 7.3 g/dL (6.4-8.2); Triglycerides 113 mg/dL (0-150)
== END 2024-06-23 08:38 | disposition home or self-care (01) ==
PROVIDERS: PCP Family Medicine; Visit Provider Nurse Practitioner Family
DX: E11.628 Type 2 diabetes mellitus with other skin complications (principal); E78.5 Hyperlipidemia, unspecified; N18.9 Chronic kidney disease, unspecified
CPT/HCPCS: 36415; 80053; 80061; 83036; 85025

== ENCOUNTER 2024-09-28 11:51 | Outpatient (CLI) | payer MEDICARE, SELFPAY ==
[2024-09-28 12:50] LABS: Alanine Aminotransferase 21 U/L (14-59); Albumin Level 3.9 g/dL (3.4-5.0); Alkaline Phosphatase 67 U/L (46-116); Anion Gap 11 mmol/L (4-12); Aspartate Amino Transferase < 10 U/L (15-37); Bilirubin,Total 0.3 mg/dL (0.00-1.00); Blood Urea Nitrogen 20 mg/dL (7-18); Calcium 9.6 mg/dL (8.5-10.1); Carbon Dioxide 24 mmol/L (21-32); Chloride 102 mmol/L (98-108); Estimated Glomerular Filt Rate 44; Glucose 232 mg/dL (70-99); Osmolality Calculated 293 mOsm/kg (285-295); Potassium 4.9 mmol/L (3.5-5.1); Sodium 137 mmol/L (136-145); Total Protein 7.6 g/dL (6.4-8.2)
--- OUTSIDE RECORDS SUMMARY | 2024-09-28 13:27 | XMS_ITS | Clinical Summary ---
Author Organization [facility] Address [address] [place] [address] Care Team Providers Care Traditional Chinese Herbalist Name Role Phone Ricco Lopez DO Primary Care Provider [phone] Allergies No known active allergies Medications nystatin (MYCOSTATIN) powderIndicatio ns:skin [The details of the medication are not available because there are pending changes by a home health clinician.] 30 g 3 Active Additional Information Patient not taking.Reported on 03/14/2023 oxyCODONE immediate release (ROXICODONE) 10 MG immediate release tabletIndicatio ns:Acute Pain < 7 Day Supply Take 1 tablet (10 mg total) by mouth every 8 (eight) hours as needed. Indications: Acute Pain < 7 Day Supply 12 tablet 3 Active insulin lispro (HUMALOG) 100 UNIT/ML injection (VIAL)Indicatio ns:diabetes Inject 0-2 Units into the skin 3 (three) times daily before meals. 150-200 1 units 201-250 2 units 10 mL 3 Active ibuprofen (MOTRIN) 200 MG tabletIndicatio ns:pain Take 600 mg by mouth 2 (two) times daily as needed. Indications: pain 3 Active Ascorbic Acid (VITAMIN C) 500 MG Chew TabIndications: vitamin Chew 500 mg by mouth daily. Indications: vitamin 3 Active amLODIPine (NORVASC) 10 MG tabletIndicatio ns:Hypertension Take 10 mg by mouth daily. Indications: High Blood Pressure Disorder 3 Active carvedilol (COREG) 6.25 MG tabletIndicatio ns:Hypertension Take 6.25 mg by mouth 2 (two) times daily. Indications: High Blood Pressure Disorder 3 Active ferrous sulfate, 65 mg elemental, 325 (65 FE) MG tabletIndicatio ns:Supplement Take 325 mg by mouth 2 (two) times daily with meals. Indications: Supplement 3 Active vitamin D2, ergocalciferol, (VITAMIN D, ERGOCALCIFEROL, ) 1.25 mg capsuleIndicati ons:Wound Healing Take 1.25 mg by mouth every 7 days. Indications: Wound Healing 3 Active insulin detemir (LEVEMIR) 100 UNIT/ML injectionIndica tions:Diabetes Mellitus Inject 20 Units into the skin nightly at bedtime. Indications: Diabetes 3 Active insulin lispro, 1 Unit Dial, (HUMALOG) 100 UNIT/ML injection (PEN)Indication s:Diabetes Mellitus Inject 6 Units into the skin 3 (three) times daily before meals. Indications: Diabetes 3 Active Active Problems Problem Noted Date Diagnosed Date DKA (diabetic ketoacidosis) ([facility]) Social History Tobacco Use Types Packs/Day Years Used Date Smoking Tobacco: Never Passive Smoke Exposure: Never Smokeless Tobacco: Never Tobacco Cessation:Counseling Given: No OASIS D0700: Social Isolation Answer Da te Recorded Frequency of experiencing loneliness or isolatio n Never 05/28/2023 OASIS A1250: Transportation Answer Date Recorded Lack of Transportation (Medical) No 05/28/2023 Lack of Transportation (Non-Medical) No 05/28/2023 Patient Unable or Declines to Respond No 05/28/2023 OASIS B1300: Health Literacy Answer Bhupendra e Recorded Frequency of needing help to read materials from doctor or pharmacy Never 05/28/2023 Humiliation, Afraid, Rape, and Kick questionnair e Answer Date Recorded Within the last year, have y ou been afraid of your partner or ex-partner? No 01/11/2023 Within the last year, have y ou been humiliated or emotionally abused in other ways by your partner or ex-partner? No Within the last year, have y ou been kicked, hit, slapped, or otherwise physically hurt by your partner or ex-partner? No 01/11/2023 Within the last year, have y ou been raped or forced to have any kind of sexual activity by your partner or ex-partner? No 01/11/2023 Social Connection and Isolation Panel [NHANES] A nswer Date Recorded In a typical week, how many times do you talk on the phone with family, friends, or neighbors? Patient declined 01/17/2023 How often do you get togethe r with friends or relatives? Patient declined 01/17/2023 How often do you attend quaker or caodaism serv ices? Patient declined 01/17/2023 Do you belong to any clubs o r organizations such as quaker groups, unions, fraternal or athletic groups, or school groups? Patient declined 01/17/2023 How often do you attend meet ings of the clubs or organizations you belong to? Patient declined 01/17/2023 Are you , , di vorced, , never , or living with a partner? Patient declined 01/17/2023 AUDIT-C Answer Date Recorded Q1: How often do you have a drink containing alcohol? Never 01/17/2023 Q2: How many drinks containi ng alcohol do you have on a typical day when you are drinking? Patient does not drink Q3: How often do you have si x or more drinks on one occasion? Never 01/17/2023 Overall Financial Resource Strain (CARDIA) Answe r Date Recorded How hard is it for you to pa y for the very basics like food, housing, medical care, and heating? Not hard at all 01/11/2023 Exercise Vital Sign Answer Date Recorde d On average, how many days pe r week do you engage in moderate to strenuous exercise (like a brisk walk)? 0 days 01/17/2023 On average, how many minutes do you engage in exercise at this level? 0 min 01/17/2023 Hunger Vital Sign Answer Date Recorded Within the past 12 months, y ou worried that your food would run out before you got the money to buy more. Sometimes true Within the past 12 months, t he food you bought just didn't last and you didn't have money to get more. Sometimes true PRAPARE - Transportation Answer Date Re corded In the past 12 months, has l ack of transportation kept you from medical appointments or from getting medications? No 12/20 In the past 12 months, has l ack of transportation kept you from meetings, work, or from getting things needed for daily living? No 01/11/2023 Housing Stability Vital Sign Answer Bhupendra e Recorded In the last 12 months, was t here a time when you were not able to pay the mortgage or rent on time? No 01/11/2023 In the last 12 months, how many places have you lived? 1 01/11/2023 In the last 12 months, was t here a time when you did not have a steady place to sleep or slept in a halfway (including now)? No 01/11/2023 Comments Unknown Sex and Gender Information Value Date Recorded Sex Assigned at Not on file Legal Sex Female 5:43 PM [employer] Gender Identity Not on file Sexual Orientation Not on file Last Filed Vital Signs Vital Sign Reading Time Taken Comments Blood Pressure 113/78 05/28/2023 3:20 PM [employer] Pulse 74 05/28/2023 3:20 PM [employer] Temperature 36.4 C (97.5 F) 05/28/2023 3:20 PM [employer] LO[employer]ER Respiratory Rate 18 05/28/2023 3:20 PM [employer] LO[employer]ER Oxygen Saturation 92% 05/28/2023 3:20 PM [employer] LO[employer]ER Inhaled Oxygen Concentration - - Weight 96.8 kg (213 lb 6.5 oz) 02/11/2023 5:00 A M CDT Height 165.1 cm (5' 5 ) 01/10/2023 10:38 PM CDT Body Mass Index 35.51 01/10/2023 10:38 PM CDT Plan of Treatment Health Maintenance Due Date Last Done Comments Cervical Cancer Screening Pap Smear (Age 30 to 64) Every 3 Years 1981 Kidney Health Evaluation 1981 Lipid Panel 1981 Annual Physical 1984 Pneumococcal Vaccine: Pediatrics (0 to 5 Years) and At-Risk Patients (6 to 64 Years) (1 of 2 - PCV) 1987 DTaP, Tdap and Td Vaccines (6 - Tdap) 03/25/1997 03/24/1997, 01/23/1996, 03/11/1986, Additional history exists Diabetes: Retinopathy Eye Exam 1999 Hepatitis C 1999 Hepatitis B Vaccines (1 of 3 - 19+ 3-dose series) 2000 Cervical Cancer Screening Pap with HPV Testing (Age 30 to 64) Every 5 Years 2011 Cervical Cancer Screening with HPV 2011 Mammogram Screening 2021 Hemoglobin A1C 04/13/2023 01/11/2023 COVID-19 Vaccine (2023- season) 2024 Influenza Adult (#1) 2024 HPV Vaccines Aged Out No longer eligi ble based on patient's age to complete this topic Meningococcal B Vaccine Aged Out No l onger eligible based on patient's age to complete this topic Meningococcal Vaccine Aged Out No theodore jose r eligible based on patient's age to complete this topic RSV Immunizations Under 20 Months Aged Out No longer eligible based on patient's age to complete this topic Procedures Procedure Name Priority Date/Time Associated Diagnosis Comments HEMOGLOBIN, GLYCOSYLATED Routine 01/11/2023 5:10 AM CDT from Last 3 Months or Most Recently Relevant to Health Maintenance Results * (ABNORMAL) HEMOGLOBIN, GLYCOSYLATED (01/11/2023 5:10 AM CDT) HGB A1C 12.6(H) <5.7 % 01/11/2023 9:05 PM CDT [facility] ESTIMATED AVG GLUCOSE 315(H) 74 - 114 MG/DL 01/11/2023 9:05 PM CDT [facility] 01/11/2023 5:10 AM CDT us Agueda Kiser [employer]IE[employer] SAL[employer]ERSON[facility] Final Resul t [facility] [address] [place] [address], [id number] from Last 3 Months or Most Recently Relevant to Health Maintenance Insurance [facility] Advance Directives * Full Code (Latest Code Status on File) Date Activated Date Inactivated Comments 02/16/2023 10:37 AM * Full Code Date Activated Date Inactivated Comments 01/10/2023 10:50 PM 02/14/2023 5:07 PM Care Teams Traditional Chinese Herbalist Relationship Specialty Start Date End Date Ricco Lopez DO [address] [place] [address] PCP - General FAMILY PRACTICE 02/10/23
[2024-09-30 02:13] LABS: C-Peptide 5.24 ng/mL (0.80-3.85)
[2024-09-30 15:04] LABS: Insulin Level Total 13.1 uIU/mL
== END 2024-09-28 11:52 | disposition home or self-care (01) ==
LOC: CHSLAB 11:52
PROVIDERS: PCP Family Medicine; Visit Provider Family Medicine
DX: E11.628 Type 2 diabetes mellitus with other skin complications (principal)
CPT/HCPCS: 36415; 80053; 80061; 83525; 84681